=== PATIENT | male | born 1955 | race Caucasian/White ===

== ENCOUNTER 2017-10-26 11:21 | Emergency (ER) | payer OTHER ==
[2017-10-26 11:30] VITALS: BP 107/66
--- NOTE | 2017-10-26 12:11 | ER Document Report ---
ED Medical Screen (RME) - General Chief Complaint: Abscess Stated Complaint: LEFT LEG PAIN Time Seen by Provider: 10/26/17 12:09 Notes: 62-year-old male has a growth in his inner posterior left thigh which frequently drains pus. His never been surgically removed. It is worse now with burning discomfort and swelling more. I have greeted and performed a rapid initial assessment of this patient. A comprehensive ED assessment and evaluation of the patient, analysis of test results and completion of the medical decision making process will be conducted by additional ED providers. TRAVEL OUTSIDE OF THE [place] IN LAST 30 DAYS: No - Related Data Allergies/Adverse Reactions: No Known Allergies Allergy (Verified 10/26/17 11:23) Past Medical History - Social History Chew tobacco use (# tins/day): No Frequency of alcohol use: Rare Drug Abuse: None - Past Medical History Cardiac Medical History: Reports: Hx Hypercholesterolemia, Hx Hypertension Pulmonary Medical History: Reports: Hx COPD Endocrine Medical History: Reports: Hx Diabetes Mellitus Type 2 Renal/ Medical History: Denies: Hx Peritoneal Dialysis Past Surgical History: Reports: Hx Orthopedic Surgery - amputee right foot (BKA) Physical Exam - Vital signs Vitals: Temp Pulse Resp BP Pulse Ox 99.1 F 104 H 17 107/66 94 10/26/17 11:26 10/26/17 11:26 10/26/17 11:10/26/17 11:26 10/26/17 11:26 Course - Vital Signs Vital signs: Temp Pulse Resp BP Pulse Ox 99.1 F 104 H 17 107/66 94 10/26/17 11:26 10/26/17 11:26 10/26/17 11:26 10/26/17 11:26 10/26/17 11:26
--- NOTE | 2017-10-26 13:01 | ER Document Report ---
ED General - General Chief Complaint: Abscess Stated Complaint: LEFT LEG PAIN Time Seen by Provider: 10/26/17 12:09 Mode of Arrival: Ambulatory Information source: Patient Notes: Patient is a 62-year-old male who presents with possible abscess to left thigh that has been present for the past month and a half. He endorses intermittent drainage. He denies any history of incision and drainage to the same area. TRAVEL OUTSIDE OF THE [place] IN LAST 30 DAYS: No - Related Data Allergies/Adverse Reactions: No Known Allergies Allergy (Verified 10/26/17 11:23) Past Medical History - General Information source: Patient - Social History Smoking Status: Current Every Day Smoker Chew tobacco use (# tins/day): No Frequency of alcohol use: Rare Drug Abuse: None Patient has suicidal ideation: No Patient has homicidal ideation: No - Past Medical History Cardiac Medical History: Reports: Hx Hypercholesterolemia, Hx Hypertension Pulmonary Medical History: Reports: Hx COPD Endocrine Medical History: Reports: Hx Diabetes Mellitus Type 2 Renal/ Medical History: Denies: Hx Peritoneal Dialysis Past Surgical History: Reports: Hx Orthopedic Surgery - amputee right foot (BKA) Review of Systems - Review of Systems Constitutional: See HPI EENT: No symptoms reported Cardiovascular: No symptoms reported Respiratory: No symptoms reported Gastrointestinal: No symptoms reported Genitourinary: No symptoms reported Male Genitourinary: No symptoms reported Musculoskeletal: No symptoms reported Skin: See HPI Hematologic/Lymphatic: No symptoms reported Neurological/Psychological: No symptoms reported Physical Exam - Vital signs Vitals: Temp Pulse Resp BP Pulse Ox 99.1 F 104 H 17 107/66 94 10/26/17 11:26 10/26/17 11:26 10/26/17 11:26 10/26/17 11:26 10/26/17 11:26 - Notes Notes: PHYSICAL EXAM: CONSTITUTIONAL: Alert and oriented, well-appearing and in no acute distress. HENT: Normocephalic, atraumatic. Ear canals without erythema or foreign body, TMs pearly bush with good bony landmarks. Nares clear without erythema, septal hematoma or deviation, airway patent. Oropharynx clear without erythema, tonsilar exudate or malocclusion. Trachea midline. Uvula midline. Moist mucous membranes. EYES: Pupils equal round and reactive to light, EOM intact. Sclera anicteric, conjunctiva are normal. No entrapment. NECK: supple without lymphadenopathy. No midline tenderness or paraspinous muscle spasms. No step-offs or deformities. ROM intact. HEART: Regular rate and rhythm without murmurs. LUNGS: CTAB and equal. No wheezes, rales or rhonchi. GI: Normactive bowel sounds. Nontender, non-distended. No organomegaly. no CVAT. [employer]: External exam normal. No rashes or lesions. No vaginal discharge or vaginal bleeding. Cervix without lesions. No cervical motion tenderness. BACK: nontender, no paraspinous spasm, 5+/5 strengths, DTRs 2+, SLR -. EXTREMITIES: Normal range of motion, no pitting edema. No cyanosis. Cap Refill < 3 seconds. NEURO: Cranial nerves grossly intact. Normal sensory/motor exams. PSYCH: Normal mood, normal affect. SKIN: Warm and dry. Normal turgor. No rashes or lesions noted. Course - Re-evaluation Re-evalutation: 10/26/17 13:01 Patient seen and examined. - Vital Signs Vital signs: Temp Pulse Resp BP Pulse Ox 99.1 F 104 H 17 107/66 94 10/26/17 11:26 10/26/17 11:26 10/26/17 11:26 10/26/17 11:26 10/26/17 11:26
[2017-10-26] MEDS ORDERED: PIPERACILLIN/TAZOBACTAM 3.375 GM VIAL IV ONE (13:55)
--- NOTE | 2017-10-26 14:02 | ER Document Report ---
ED Medical Screen (RME) - General Chief Complaint: Abscess Stated Complaint: LEFT LEG PAIN Time Seen by Provider: 10/26/17 12:09 Mode of Arrival: Ambulatory Information source: Patient Notes: Patient is a 62 year old male with history of DM and traumatic left BKA who presents with groin abscess that started 1.5 months ago with intermittent bloody drainage. He denies fever, chills, n/v/d. He has not had history of MRSA and has had one I&D previously on his left finger. TRAVEL OUTSIDE OF THE [place] IN LAST 30 DAYS: No - Related Data Allergies/Adverse Reactions: No Known Allergies Allergy (Verified 10/26/17 11:23) Past Medical History - General Information source: Patient - Social History Chew tobacco use (# tins/day): No Frequency of alcohol use: Rare Drug Abuse: None - Past Medical History Cardiac Medical History: Reports: Hx Hypercholesterolemia, Hx Hypertension Pulmonary Medical History: Reports: Hx COPD Endocrine Medical History: Reports: Hx Diabetes Mellitus Type 2 Renal/ Medical History: Denies: Hx Peritoneal Dialysis Past Surgical History: Reports: Hx Orthopedic Surgery - amputee right foot (BKA) Review of Systems - Review of Systems Constitutional: See HPI EENT: No symptoms reported Cardiovascular: No symptoms reported Respiratory: No symptoms reported Gastrointestinal: No symptoms reported Genitourinary: No symptoms reported Male Genitourinary: No symptoms reported Musculoskeletal: No symptoms reported Skin: See HPI Hematologic/Lymphatic: No symptoms reported Neurological/Psychological: No symptoms reported Physical Exam - Vital signs Vitals: Temp Pulse Resp BP Pulse Ox 99.1 F 104 H 17 107/66 94 10/26/17 11:26 10/26/17 11:26 10/26/17 11:26 10/26/17 11:26 10/26/17 11:26 - Notes Notes: PHYSICAL EXAM: CONSTITUTIONAL: Alert and oriented, well-appearing and in no acute distress. HENT: Normocephalic, atraumatic. Trachea midline. Uvula midline. Moist mucous membranes. HEART: Regular rate and rhythm without murmurs. LUNGS: CTAB and equal. No wheezes, rales or rhonchi. EXTREMITIES: Left BKA. SKIN: Warm and dry. Normal turgor. 5x7 cm fluctuant abscess to left groin area. Course - Re-evaluation Re-evalutation: 10/26/17 14:00 Patient seen and examined. Large fluctuant abscess measuring approximately 5x7 cm to left groin area - patient is diabetic with low grade temp of 99F and HR of 105. I have consulted with the supervisory physician per [facility] guidelines. We both agree this should be managed surgically -will order labs/IV abx/wound culture I have greeted and performed a rapid initial assessment of this patient. A comprehensive ED assessment and evaluation of the patient, analysis of test results and completion of the medical decision making process will be conducted by additional ED providers. - Vital Signs Vital signs: Temp Pulse Resp BP Pulse Ox 99.1 F 104 H 17 107/66 94 10/26/17 11:26 10/26/17 11:26 10/26/17 11:26 10/26/17 11:26 10/26/17 11:26
[2017-10-26] MEDS ORDERED: NORMAL SALINE 1000 ML 1,000 ML IV ONE (14:03)
--- NOTE | 2017-10-26 14:42 | ER Document Report ---
ED General - General Chief Complaint: Abscess Stated Complaint: LEFT LEG PAIN Time Seen by Provider: 10/26/17 12:09 Mode of Arrival: Ambulatory Notes: 62-year-old male presents with painful swelling in the left groin, and the proximal thigh for 1.5 months with intermittent bloody drainage. Denies fevers chills. History of I&D on his finger. He has no pain or involvement of the scrotum or rectum. Not a diabetic. Denies fevers and chills. TRAVEL OUTSIDE OF THE [place] IN LAST 30 DAYS: No - Related Data Allergies/Adverse Reactions: No Known Allergies Allergy (Verified 10/26/17 11:23) Past Medical History - General Information source: Patient - Social History Smoking Status: Current Every Day Smoker Chew tobacco use (# tins/day): No Frequency of alcohol use: Rare Drug Abuse: None Family History: None Patient has suicidal ideation: No Patient has homicidal ideation: No - Past Medical History Cardiac Medical History: Reports: Hx Hypercholesterolemia, Hx Hypertension Pulmonary Medical History: Reports: Hx COPD Endocrine Medical History: Reports: Hx Diabetes Mellitus Type 2 Renal/ Medical History: Denies: Hx Peritoneal Dialysis Past Surgical History: Reports: Hx Orthopedic Surgery - amputee right foot (BKA) Review of Systems - Review of Systems Notes: REVIEW OF SYSTEMS GEN: Denies fever, chills, weight loss ENT: Denies sore throat, nasal discharge, ear pain EYES: Denies blurry vision, eye pain, discharge CV: Denies chest pain, palpitations, edema RESP: Denies cough, shortness of breath, wheezing GI: Denies abdominal pain, nausea, vomiting, diarrhea MSK: Denies joint pain/swelling, edema, SKIN: Abscess left groin LYMPH: Denies swollen glands/lymph nodes NEURO: Denies headache, focal weakness or numbness, dizziness PSYCH: Denies depression, suicidal or homicidal ideation PHYSICAL EXAMINATION General: No acute distress, well-nourished Head: Atraumatic, normocephalic ENT: Mouth normal, oropharynx moist, no exudates or tonsillar enlargement Eyes: Conjunctiva normal, pupils equal, lids normal Neck: No JVD, supple, no guarding CVS: Normal rate, regular rhythm, no murmurs Resp: No resp distress, equal and normal breath sounds bilaterally GI: Nondistended, soft, no tenderness to palpation, no rebound or guarding Ext: There is a 5 cm fluctuant area lateral to the inguinal fold on the proximal inner left thigh. It does not extend the perineum scrotum or the perianal area. It is tender. There is some bloody drainage. Nonpulsatile. Not near the femoral vessels. Back: No CVA or midline TTP Skin: No rash, warm Lymphatic: No lymphadeopathy noted Neuro: Awake, alert. Face symmetric. GCS 15. Physical Exam - Vital signs Vitals: Temp Pulse Resp BP Pulse Ox 99.1 F 104 H 17 107/66 94 10/26/17 11:26 10/26/17 11:26 10/26/17 11:10/26/17 11:10/26/17 11:26 Course - Re-evaluation Re-evalutation: 10/26/17 14:40 Chronic draining abscess of groin. Doubt Prasad's. Doubt pseudoaneurysm. No evidence of sepsis. Slightly tachycardic but no fever. Labs ordered at triage as were IV antibiotics but I believe this patient is well enough to have an outpatient incision and drainage and outpatient antibiotics which I will start here in the emergency department. 10/26/17 22:53 Patient incision and drainage was completed. Given Bactrim on discharge. Instructed in depth on loop drainage techniques and home care. Insert discharge 10/26/17 22:53 I have discussed with the patient there likely diagnosis, aftercare plan, follow -up plans and my usual and customary return precautions. They verbalized understanding of this. - Vital Signs Vital signs: Temp Pulse Resp BP Pulse Ox 99.1 F 104 H 17 107/66 94 10/26/17 11:26 10/26/17 11:10/26/17 11:26 10/26/17 11:26 10/26/17 11:26 Procedures - Incision and Drainage Left Upper Thigh Time completed: 22:53 Type: Simple, Complex Anesthetic type: 1% Lidocaine w/epi mL's of anesthetic: 2 Blade size: 11 I&D procedure: Betadine prep applied Incision Method: Incision made by scalpel Amount/type of drainage: 15 cc blood and pus liquid Notes: 10/26/17 22:54 Probed with hemostats to break up loculations. Stab incision 2 work was created. Ara drain was fed in and out and looped around. Adult Front & Back picture: 1 - Abscess Discharge - Discharge Clinical Impression: Abscess of left lower extremity Condition: Good Disposition: HOME, SELF-CARE Instructions: Abscess ([facility]) Additional Instructions: Please rotate the loop drain twice a day, also put warm compresses on your wound twice a day. It will drain and this is normal. Once the drainage stops usually between 3 and 5 days he may clip the loop and pulled out. Keep that wound covered. Return to the ER for enlarging wound, scrotal pain fever or any other symptoms that were you. Prescriptions: Sulfamethoxazole/Trimethoprim [Bactrim Ds Tablet] 1 each PO BID #14 tablet
[2017-10-26] MEDS ORDERED: LIDOCAINE 1%/EPINEPHRINE INJ 20 ML VIAL INJ ONE (14:49)
== END 2017-10-26 16:33 | disposition home or self-care (01) ==
LOC: ER 11:21
PROC: 0H9JXZZ Drainage of Left Upper Leg Skin, External Approach (ICD-10-PCS; principal; 2017-10-26)
DX: L02.416 Cutaneous abscess of left lower limb (principal); E78.00 Pure hypercholesterolemia, unspecified; I10 Essential (primary) hypertension; E11.9 Type 2 diabetes mellitus without complications; J44.9 Chronic obstructive pulmonary disease, unspecified; Z89.511 Acquired absence of right leg below knee
CPT/HCPCS: 99283; 10061; J3490

== ENCOUNTER 2019-07-24 08:03 | Day surgery (SDC) | payer MEDICARE ==
[~2019-07-24 08:03] MED LIST: PROPOFOL INJ 200 MG/20 ML VIAL IV ONE
[2019-07-24 10:14] VITALS: BP 99/57
--- NOTE | 2019-07-24 13:38 | Operative Report ---
Operative Report DATE OF SURGERY: 07/24/19 Operative Report: The risks, benefits and alternatives of the procedure including risk of bleeding, perforation requiring surgery have been explained to the patient in detail and informed consent has been obtained. The patient is placed in a left, lateral decubital position. Timeout was called. Propofol medication is administered. Rectal examination is done which did not reveal any masses, tears or fissures. An Olympus videoscope was introduced into the patient's rectum. The scope was then carefully advanced all the way to the cecum. The cecum was identified by the usual anatomical landmarks including the ileocecal valve as well as the appendiceal office. Photodocumentation is obtained. Scope was then sequentially pulled back via the rest segments of the colon including the ascending colon, hepatic flexure, transverse colon, splenic flexure, descending colon finding to the rectosigmoid portions of the colon. Retroflexion maneuvers performed. PREOPERATIVE DIAGNOSIS: Personal history of polyp POSTOPERATIVE DIAGNOSIS: Inflammation noted variance of the colon status post biopsy. Internal hemorrhoids OPERATION: Colonoscopy with biopsy SURGEON: NAOMI ONEAL ANESTHESIA: LMAC TISSUE REMOVED OR ALTERED: As noted above. COMPLICATIONS: None. ESTIMATED BLOOD LOSS: None. INTRAOPERATIVE FINDINGS: As noted above. PROCEDURE: Patient tolerated the procedure well. No immediate postprocedure complications are noted. Patient is discharged in good condition. Discharge date 07/24/2019. Discharge diet: Regular. Discharge activity: Regular. 2 to 3-week follow-up to discuss findings. Patient is instructed to call the office or proceed to the emergency room should there be any further problems or questions. Wait on the pathology. Family history of colorectal cancer therefore 5-year surveillance colonoscopy.
== END 2019-07-24 10:19 | disposition home or self-care (01) ==
LOC: END 08:03
PROVIDERS: ATTEND Internal Medicine Gastroenterology
DX: Z12.11 Encounter for screening for malignant neoplasm of colon (principal); K52.9 Noninfective gastroenteritis and colitis, unspecified; K64.8 Other hemorrhoids; Z86.010 Personal history of colon polyps; F17.210 Nicotine dependence, cigarettes, uncomplicated; I10 Essential (primary) hypertension; J44.9 Chronic obstructive pulmonary disease, unspecified; E11.9 Type 2 diabetes mellitus without complications; Z99.81 Dependence on supplemental oxygen
CPT/HCPCS: 45380; 82962; 88305 ×2; 00812; J2704; 812